=== PATIENT | female | born 1975 | race African-American/Black ===

== ENCOUNTER 2017-10-21 19:38 | Emergency (ER) | payer SELFPAY ==
[~2017-10-21] VITALS: Ht 160 cm; Wt 91.0 kg
[~2017-10-21 19:38] MED LIST: LISI-360 PO; METR500I3 PO; ULTR50TA PO
[2017-10-21 19:54] VITALS: BP 222/98; PULSE 63; RESP 18; TEMP 98.6; O2SAT 100
[2017-10-21 20:21] VITALS: BP 191/93
[2017-10-21] MEDS ORDERED: BACT800T5 PO (20:27)
[2017-10-21] MEDS ORDERED: DICL75TA PO (20:27)
--- NOTE | 2017-10-21 20:33 | PD ---
HPI Chief Complaint: Skin Problem Time Seen by Provider: 20:20 Travel History International Travel<30 days: No Contact w/Intl Traveler<30days: No Traveled to known affect area: No History of Present Illness HPI 42-year-old black female presents emergency department with complaints of skin infections under her armpits. Patient states that she has had this in the past. Symptoms are moderate. Present now for the past day. Exacerbated by movement and shaving. No alleviating factors. She denies any fever or chills. No chest pain, shortness of breath, nausea, vomiting, abdominal pain. PFSH Past Medical History Narrative Medical Hypertension, abscess Hx Anticoagulant Therapy: No Cardiovascular Problems: Yes Chemotherapy: No Cerebrovascular Accident: No Diabetes: No Diminished Hearing: No Hypertension: Yes Respiratory: No Tetanus Vaccination: < 5 Years Influenza Vaccination: No ?: Not LMP: 09/21/2017 : 1 Para: 1 Past Surgical History Narrative Surgical Action, ankle fracture with ORIF Section: Yes Other Surgery: Yes () Social History Alcohol Use: No Tobacco Use: No Substance Use: No Allergies-Medications (Allergen,Severity, Reaction): Coded Allergies: metaxalone (Unverified Allergy, Severe, 10/21/17) Uncoded Allergies: COOL AID (Allergy, Intermediate, Hives, 06/04/13) Reported Meds & Prescriptions Reported Meds & Active Scripts Active Diclofenac Sodium DR (Diclofenac Sodium) 75 Mg Tabdr 75 Mg PO BID Bactrim DS (Sulfamethoxazole-Trimethoprim) 800-160 Mg Tab 1 Tab PO BID Metronidazole In Nacl 0.7 (Metronidazole In Nacl) 500 Mg Tab 500 Mg PO BID 7 Days Ultram (Tramadol HCl) 50 Mg Tab 50 Mg PO Q4H PRN Lisinopril 10 mg (Lisinopril) 10 Mg Tab 1 Tab PO DAILY Review of Systems General / Constitutional: No: Fever Eyes: No: Visual changes HENT: No: Headaches Cardiovascular: No: Chest Pain or Discomfort Respiratory: No: Shortness of Breath Gastrointestinal: No: Abdominal Pain Genitourinary: No: Dysuria Musculoskeletal: No: Pain Skin: Positive Lumps, No Rash Neurologic: No: Weakness Psychiatric: No: Depression Endocrine: No: Polydipsia Hematologic/Lymphatic: No: Easy Bruising Physical Exam Narrative GENERAL: Well-developed, well-nourished in no acute distress. Nontoxic appearing. HEAD: Normocephalic, atraumatic. EYES: Pupils equal round and reactive. Extraocular motions intact. No scleral icterus. No injection or drainage. ENT: TMs clear without erythema. The external auditory canals clear. Nose: clear . Posterior pharynx is pink and moist. No tonsillar edema or exudate. Uvula midline. Airway patent. NECK: Trachea midline.Supple, nontender, moves head freely. No central bony tenderness or spasm. CARDIOVASCULAR: Regular rate and rhythm without murmurs, gallops, or rubs. RESPIRATORY: Clear to auscultation. Breath sounds equal bilaterally. No wheezes , rales, or rhonchi. GASTROINTESTINAL: Abdomen soft, non-tender, nondistended. No hepato-splenomegaly , or palpable masses. No guarding. EXTREMITIES: No clubbing, cyanosis, or edema. No joint tenderness, effusion, or edema noted. BACK: Nontender without deformity or crepitance. No flank tenderness. Skin: Patient has 1 simple 1 cm superficial abscess to the right axilla. There is no fluctuance or pointing. Minimally tender. No discharge. Data Data Last Documented VS Vital Signs Date Time Temp Pulse Resp B/P (MAP) Pulse Ox O2 Delivery O2 Flow Rate FiO2 10/21/17 20:21 191/93 (125) 10/21/17 19:54 98.6 63 18 100 Orders Orders Ed Discharge Order (10/21/17 20:30) MDM Medical Decision Making Medical Screen Exam Complete: Yes Emergency Medical Condition: Yes Medical Record Reviewed: Yes Differential Diagnosis MDM: High Differential diagnoses: Abscess, folliculitis, cellulitis, lymphangitis, abrasion, contact dermatitis Narrative Course This is a right axilla abscess Diagnosis Primary Impression: Right axilla abscess Patient Instructions: General Instructions Additional Instructions: Rest. Elevation. keep clean and dry. Warm compresses. Daily wound care with soap and water. Diclofenac and Bactrim DS. Follow-up with a primary care doctor in one week. Return to the ER for any problems. Med/Other Pt SpecificInfo: Prescription(s) given Scripts Diclofenac Sodium DR (Diclofenac Sodium DR) 75 Mg Tabdr 75 MG PO BID, #14 TAB 0 Refills Prov: Alma Lawrence DO 10/21/17 Sulfamethoxazole-Trimethoprim (Bactrim DS) 800-160 Mg Tab 1 TAB PO BID for Infection, #20 TAB 0 Refills Prov: Alma Lawrence DO 10/21/17 Disposition: 01 DISCHARGE HOME Condition: Stable Luke Smyth October 21, 2017 20:33
== END 2017-10-21 20:52 | disposition home or self-care (01) ==
LOC: NEPD 19:38
DX: L02.411 Cutaneous abscess of right axilla (principal); I10 Essential (primary) hypertension
CPT/HCPCS: 99283

== ENCOUNTER 2017-11-12 20:32 | Emergency (ER) | payer OTHER ==
[~2017-11-12] VITALS: Ht 160 cm; Wt 89.0 kg
[~2017-11-12 20:32] MED LIST changes: +BACT800T5 PO; +DICL75TA PO
[2017-11-12 20:43] VITALS: BP 119/69; PULSE 65; RESP 16; TEMP 98.7; O2SAT 100
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
[2017-11-12] MEDS ORDERED: oxyCODONE/ACETAMINOPHEN 5 MG/325 MG TAB PO ONE (23:15)
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
[2017-11-13] MEDS ORDERED: TRAM50TA PO (00:28)
[2017-11-13] MEDS ORDERED: LISI10TA3 PO (00:48)
== END 2017-11-13 00:48 | disposition home or self-care (01) ==
LOC: NEPD 20:32
DX: S20.212A Contusion of left front wall of thorax, initial encounter (principal); I10 Essential (primary) hypertension; V49.9XXA Car occupant (driver) (passenger) injured in unspecified traffic accident, initial encounter
CPT/HCPCS: 71101; 99283